=== PATIENT | male | born 1980 | race Caucasian/White ===

== ENCOUNTER 2017-11-23 10:32 | Emergency (ER) | payer OTHER ==
[~2017-11-23] VITALS: Ht 172.7 cm; Wt 79.4 kg
[2017-11-23 10:38] VITALS: BP 121/81
[2017-11-23] MEDS ORDERED: MONTELUKAST SOD10 M1 PO (11:20)
[2017-11-23] MEDS ORDERED: IBUPROFEN400 M1 PO (12:30)
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
== END 2017-11-23 12:50 ==
LOC: ERH 10:32
DX: S00.83XA Contusion of other part of head, initial encounter (principal); Y04.0XXA Assault by unarmed brawl or fight, initial encounter